=== PATIENT | male | born 1985 | race African-American/Black ===

== ENCOUNTER 2020-03-30 10:42 | Emergency (ER) | payer MEDICAID, SELFPAY ==
[~2020-03-30] VITALS: Ht 177.8 cm; Wt 72.6 kg
[2020-03-30 10:45] VITALS: BP 118/61
--- NOTE | 2020-03-30 10:50 | NUR ---
34 Y/O MALE BIBA BLS FOR C/O "NOT FEELING WELL." PT STATES COUGH, CHILLS, AND BODY PAIN X 3 DAYS. NO COUGH NOTED FROM PT AT THIS TIME. PT REPEATEDLY ASKING FOR WATER AND A MEAL. PT MUST BE REDIRECTED FREQUENTLY. RR EVEN AND UNLABORED, CALM. POSITIONED FOR COMFORT. PLACED ON [employer], PULSE OX, AND BP CUFF
--- NOTE | 2020-03-30 11:18 | NUR ---
RESPIRATORY AT BEDSIDE FOR ABG DRAW
--- NOTE | 2020-03-30 11:28 | NUR ---
RADIOLOGY AT BEDSIDE
--- NOTE | 2020-03-30 11:29 | NUR ---
PT REFUSES TO GIVE URINE UNTIL HE RECEIVES MEAL. DR BHARDWAJ MADE AWARE
--- NOTE | 2020-03-30 11:30 | NUR ---
LAB AT BEDSIDE
--- NOTE | 2020-03-30 11:59 | NUR ---
PT REFUSED RSV, INFLUENZA, AND COVID 19 SWAB
[2020-03-30 12:17] LABS: ALBUMIN 3.8 g/dL (3.4-5.0); ANION GAP 13.2 (8-16); CARBON DIOXIDE 26.8 mmol/L (21-32); CREATININE 1.1 mg/dL (0.6-1.3); TOTAL BILIRUBIN 0.6 mg/dL (0.0-1.0)
[2020-03-30 12:31] LABS: LACTATE DEHYDROGENASE 151 U/L (85-227)
[2020-03-30 12:36] LABS: C-REACTIVE PROTEIN QUANT 1.1 mg/dL (0.0-0.9)
[2020-03-30 12:39] VITALS: BP 111/59
--- NOTE | 2020-03-30 12:39 | NUR ---
Patient discharged with v/s stable. Written and verbal after care instructions given and explained. Patient alert, oriented and verbalized understanding of instructions. Ambulatory with steady gait. All questions addressed prior to discharge. ID band removed. Patient advised to follow up with PMD. Rx of ACETAMINPHEN given. Patient educated on indication of medication including possible reaction and side effects. Opportunity to ask questions provided and answered.
== END 2020-03-30 12:39 | disposition home or self-care (01) ==
LOC: MED 10:42 → EEVIPCON 10:42 → MED 12:39
DX: R50.9 Fever, unspecified (principal); Z20.828 Contact with and (suspected) exposure to other viral communicable diseases
CPT/HCPCS: 36600; 71045; 80053; 82550; 82803; 83615; 83880; 84484; 86140; 87040; 93005; 99285; Q0092; 87804

== ENCOUNTER 2020-03-31 11:45 | Emergency (ER) | payer MEDICAID, SELFPAY ==
[~2020-03-31] VITALS: Ht 170.2 cm; Wt 56.7 kg
[2020-03-31 11:48] VITALS: BP 100/60
--- NOTE | 2020-03-31 11:54 | NUR ---
pt stated, what he wants is a place to sleep, rest, and food. homeless shelters list provided--handed pt sandwich with juices----pt asked if he can just stay in our lobby for awhile. does not have medical complaint at this time---ambulatory with steady gait oriented to name place time and event
--- NOTE | 2020-03-31 12:12 | NUR ---
notified, pt does not want to be seen but wants a bed and rest. another plate of food provided as requested by pt. pt allowed to stay in ER waiting lobby at this time.
--- NOTE | 2020-03-31 13:03 | NUR ---
Patient discharged with v/s stable. Written and verbal after care instructions given and explained. Patient verbalized understanding. Ambulatory with steady gait. All questions addressed prior to discharge. Advised to follow up with PMD.
== END 2020-03-31 13:03 | disposition home or self-care (01) ==
LOC: MED 11:45
DX: M54.9 Dorsalgia, unspecified (principal); Z59.0 Homelessness
CPT/HCPCS: 99283